=== PATIENT | female | born 1990 | race Hispanic/Latino ===

== ENCOUNTER 2019-04-25 11:23 | Inpatient (IN) | payer MEDICAID ==
[2019-04-25 13:10] LABS: Basophils % (Auto) 0.2 % (0.0-1.8); Eosinophils # (Auto) 0.1 K/mm3 (0.0-0.4); Hemoglobin 12.2 gm/dl (10.1-14.3); Lymphocytes # (Auto) 1.5 K/mm3 (1.2-5.4); Lymphocytes % (Auto) 15.2 % (13.4-35.0); Mean Corpuscular HGB Conc 34 % (30-34); Mean Corpuscular Volume 83 fl (79-97); Monocytes # (Auto) 0.8 K/mm3 (0.0-0.8); Monocytes % (Auto) 8.1 % (0.0-7.3); Platelet Count 198 K/mm3 (140-440); Red Blood Count 4.36 M/mm3 (3.65-5.03)
[2019-04-25] MEDS ORDERED: MINERAL OIL PO PRN (13:43)
[2019-04-25] MEDS ORDERED: XYLOCAINE 2% INFILTRATI ONE (13:43)
[2019-04-25] MEDS ORDERED: BRETHINE IVP PRN (13:43)
[2019-04-25] MEDS ORDERED: BRETHINE SUB-Q PRN (13:43)
[2019-04-25] MEDS ORDERED: PITOCin/NS 30 UNIT/500ML 30 UNITS/500 ML BAG IV SCH ×2 (14:00)
[2019-04-25] MEDS: LACTATED RINGERS 1,000 ML IV SCH (15:31)
--- NOTE | 2019-04-25 15:41 | History and Physical Report ---
History of Present Illness Date of examination: 04/25/19 Date of admission: 04/25/19 11:23 Chief complaint: My fluid is low History of present illness: Pt is a 28 year old who presents to L&D at 38.5 weeks for induction of labor secondary to oligohydramnios. Her course was complicated by breech presentation that resolved. She is GBs negative Past History Past Medical History: no pertinent history Past Surgical History: no surgical history Social history: - Obstetrical History Expected Date of Delivery: 05/04/19 Actual Gestation: 38 Week(s) 5 Day(s) : 4 Number of Living Children: 2 Medications and Allergies Allergies Allergy/AdvReac Type Severity Reaction Status Date / Time No Known Allergies Allergy Unverified 04/25/19 12:51 Active Meds: Active Medications Ephedrine Sulfate (Ephedrine Sulfate) 10 mg IV Q2M PRN PRN Reason: Hypotension Oxytocin/Sodium Chloride (Pitocin/Ns 20 Unit/1000ml Drip) 20 units in 1,000 mls @ 125 mls/hr IV DIRECT MELVIN Oxytocin/Sodium Chloride (Pitocin/Ns 30 Unit/500ml) 30 units in 500 mls @ 1 mls/hr IV TITR MELVIN; Protocol Oxytocin/Sodium Chloride (Pitocin/Ns 30 Unit/500ml) 30 units in 500 mls @ 4 mls/hr IV TITR MELVIN; Protocol Last Admin: 04/25/19 15:31 Dose: 4 mls/hr, 4 mls/hr Documented by: Lactated Ringer's (Lactated Ringers) 1,000 mls @ 125 mls/hr IV DIRECT MELVIN Last Admin: 04/25/19 15:31 Dose: 125 mls/hr Documented by: Mineral Oil (Mineral Oil) 30 ml PO QHS PRN PRN Reason: Constipation Terbutaline Sulfate (Brethine) 0.25 mg SUB-Q ONCE PRN PRN Reason: Hyperstimulation/Hypertonicity Terbutaline Sulfate (Brethine) 0.25 mg IVP ONCE PRN PRN Reason: Hyperstimulation/Hypertonicity Review of Systems All systems: negative Constitutional: fatigue Genitourinary: contractions Rectal Exam: deferred - Vital Signs Vital signs: Vital Signs Temp 97.4 F L 04/25/19 11:57 Temp Pulse Resp BP Pulse Ox 97.4 F L 86 110/75 04/25/19 11:57 04/25/19 12:40 04/25/19 12:40 - Physical Exam Breasts: Cardiovascular: Regular rate, Normal S1, Normal S2 Lungs: Positive: Clear to auscultation, Normal air movement Abdomen: Positive: normal appearance, soft, normal bowel sounds. Negative: distention, tenderness Vulva: both: normal Vagina: Positive: normal moisture. Negative: discharge Cervix: Negative: lesion, discharge Uterus: Positive: normal size, normal contour Adnexa: both: normal Anus/Rectum: Positive: normal perianal skin, heme negative. Negative: rectal mass, hemorrhoids Extremities: Deep Tendon Reflex Grade: Normal +2 - Obstetrical FHR: auscultation normal Cervical Dilatation: 2 Cervical Effacement Percentage: 70 station: -3 Uterine Contraction Pattern: Absent Uterine Contraction Intensity: Mild Results Result Diagrams: 04/25/19 12:05 Abnormal lab results 04/25/19 Range/Units 12:05 [place] % (Auto) 8.1 H (0.0-7.3) % Seg Neutrophils % 75.5 H (40.0-70.0) % All other labs normal. Assessment and Plan IUP at 38.5 weeks for induction of labor secondary to oligohydramnios. Admit for pitocin induction. AROM when able. Anticipate .
[2019-04-25] MEDS: STADOL IV PRN ×2 (17:41→20:07)
[2019-04-26] MEDS: LACTATED RINGERS 1,000 ML IV SCH ×3 (00:28→12:21)
[2019-04-26] MEDS ORDERED: NARCAN 2 MG/2 ML IV PRN (01:09)
--- NOTE | 2019-04-26 01:11 | Anesthesia Consultation ---
Anesthesia Consult and Med Hx Date of service: 04/26/19 - Airway Anesthetic Teeth Evaluation: Good ROM Head & Neck: Adequate Mental/Hyoid Distance: Adequate Mallampati Class: Class III Intubation Access Assessment: Probably Good - Pulmonary Exam CTA: Yes - Cardiac Exam Cardiac Exam: RRR - Pre-Operative Health Status ASA Pre-Surgery Classification: ASA2 Proposed Anesthetic Plan: Epidural - Pulmonary Hx Smoking: No Hx Asthma: No Hx Respiratory Symptoms: No SOB: No COPD: No Home Oxygen Therapy: No Hx Pneumonia: No Hx Sleep Apnea: No - Cardiovascular System Hx Hypertension: No Hx Coronary Artery Disease: No Hx Heart Attack/AMI: No Hx Angina: No Hx Percutaneous Transluminal Coronary Angioplasty (PTCA): No Hx Cardia Arrhythmia: No Hx Pacemaker: No Hx Internal Defibrillator: No Hx Valvular Heart Disease: No Hx Heart Murmur: No Hx Peripheral Vascular Disease: No - Central Nervous System Hx Neuromuscular Disorder: No Hx Seizures: No CVA: No Hx Back Pain: Yes Hx Psychiatric Problems: No - Gastrointestinal Hx Ulcer: No Hx Gastroesophageal Reflux Disease: Yes - Endocrine Hx Renal Disease: No Hx End Stage Renal Disease: No Hx Cirrhosis: No Hx Liver Disease: No Hx Insulin Dependent Diabetes: No Hx Non-Insulin Dependent Diabetes: No Hx Thyroid Disease: No Hx Hypothyroidism: No Hx Hyperthyroidism: No - Hematic Hx Anemia: No Hx Sickle Cell Disease: No - Other Systems Hx Alcohol Use: No Hx Substance Use: No Hx Cancer: No Hx Obesity: Yes (BMI 43)
[2019-04-26] MEDS: fentaNYL-BUPIV 2 MCG/ML-0.125% 200 MCG/100 ML BAG EPIDURAL SCH ×2 (02:22→10:22)
[2019-04-26] MEDS ORDERED: ZOFRAN IV PRN ×2 (12:53→18:12)
[2019-04-26] MEDS ORDERED: MARCAINE 0.25% INFILTRATI ONE (12:56)
[2019-04-26] MEDS: PITOCin/NS 20 UNIT/1000ML DRIP 20 UNITS/1,000 ML BAG IV SCH ×2 (16:03→17:12)
[2019-04-26] MEDS ORDERED: PHENERGAN PR PRN (18:12)
[2019-04-26] MEDS ORDERED: PHENERGAN PO PRN (18:12)
[2019-04-26] MEDS ORDERED: TYLENOL PO PRN (18:12)
[2019-04-26] MEDS ORDERED: DULCOLAX PR PRN (18:12)
[2019-04-26] MEDS ORDERED: SODIUM CHLORIDE FLUSH SYRINGE 10 ML IV NR (18:12)
[2019-04-26] MEDS ORDERED: LANSINOH TP PRN (18:12)
[2019-04-26] MEDS ORDERED: TUCKS PAD TP PRN (18:12)
[2019-04-26] MEDS ORDERED: MILK OF MAGNESIA PO PRN (18:12)
[2019-04-26] MEDS ORDERED: BENADRYL PO PRN (18:12)
[2019-04-26] MEDS: IBUPROFEN PO SCH (18:21)
[2019-04-26] MEDS: NORCO 5/325 PO PRN (19:01)
[2019-04-27] MEDS: IBUPROFEN PO SCH ×5 (00:16→23:47)
[2019-04-27] MEDS: COLACE PO SCH ×3 (00:16→23:47)
[2019-04-27] MEDS: NORCO 5/325 PO PRN ×3 (01:19→19:39)
[2019-04-27 04:38] LABS: Hematocrit 31.7 % (30.3-42.9); Hemoglobin 10.9 gm/dl (10.1-14.3)
[2019-04-27] MEDS: PRENATAL VITAMIN PO SCH (11:26)
[2019-04-27] MEDS ORDERED: XANAX PO ONE (17:56)
[2019-04-27] MEDS ORDERED: AMBIEN PO PRN ×2 (17:56→17:57)
--- NOTE | 2019-04-27 20:46 | Procedure Note ---
OB Delivery Note - Delivery Date of Delivery: 04/26/19 Surgeon: KAREN GONZALES Estimated blood loss: 200cc - Vaginal Delivery presentation: vertex Delivery position: OA Intrapartum events: meconium Delivery induction: oxytocin Delivery augmentation: pitocin Delivery monitor: external FHT, external uterine Route of delivery: Delivery placenta: spontaneous Delivery cord: 3 umbilical vessels Episiotomy: none Delivery laceration: none Anesthesia: none Delivery comments: Viable male delivered over intact perineum. Loose nuchal reduced with out difficulty. Infant had spontaneous cry and was placed on the maternal abdomen. Placenta delivered spontaneously and intact with 3vc. Pt tolerated procedure well. No lacerations. - Infant A at 1 minute: 8 (7 pound 9 ounces, 3491 grams) at 5 minutes: 9 Infant Gender: Male
--- NOTE | 2019-04-27 20:49 | Progress Note ---
Assessment and Plan PPD 1 s/p . Doing well. Plan for discharge on tomorrow. Will give Ambien for sleep. Subjective - Subjective Date of service: 04/27/19 Interval history: PPD 1 s/p . patient is upset because is in NICU with heart abnormality. Patient seems convinced that infant has Down Syndrome because of the shape of his eyes. No formal testing was done and patient had a Luis Miguel that was negative. Otherwise, patient is recovering well. Patient reports: appetite normal, voiding normally, pain well controlled, ambulating normally [place]: in NICU Objective - Vital Signs Latest vital signs: Vital Signs Temp Pulse Resp BP BP Pulse Ox 04/27/19 19:39 20 04/27/19 16:19 97.9 F 82 20 146/85 96 04/27/19 11:58 98.0 F 89 20 147/78 94 04/27/19 07:17 97.9 F 77 20 133/87 100 04/27/19 02:25 98.2 F 83 20 124/77 97 Intake and Output 04/27/19 04/27/19 04/27/19 06:59 14:59 22:59 Intake Total 600 240 Balance 600 240 Intake: Oral 600 240 Other: Total, Intake Amount 240 240 # Voids Void 1 1 - Exam Breasts: Present: deferred Cardiovascular: Present: Regular rate, Normal S1, Normal S2 Lungs: Present: Clear to auscultation, Normal air movement Abdomen: Present: normal appearance, soft Uterus: Present: normal, firm Extremities: Present: normal Incision: Present: normal, dry, intact
--- NOTE | 2019-04-27 21:36 | Post Anesthesia Evaluation ---
- Post Anesthesia Evaluation Patient Participated: Yes Airway Patent: Yes Stable Respiratory Function: Yes Nausea/Vomiting: No Temp > 96.8F: Yes Pain Manageable: Yes Adequeate Hydration: Yes Anesthesia Complications: No Block Receding Appropriately: Yes Patient on Ventilator: No
[2019-04-27] MEDS ORDERED: XANAX PO SCH (22:00)
[2019-04-28] MEDS: IBUPROFEN PO SCH ×2 (06:15→13:17)
--- NOTE | 2019-04-28 10:11 | Discharge Summary ---
Providers - Providers Date of Admission: 04/25/19 11:23 Date of discharge: 04/28/19 Attending physician: KAREN GONZALES Primary care physician: KAREN GONZALES Hospitalization Reason for admission: induction of labor Delivery: Episiotomy: none Laceration: none Other procedures: none complications: none Discharge diagnosis: IUP at term delivered baby: male Hospital course: unremarkable Condition at discharge: Good Disposition: DC-01 TO HOME OR SELFCARE Plan - Discharge Medications Prescriptions: Escitalopram Oxalate [Lexapro] 10 mg PO DAILY #30 tablet Ibuprofen [Motrin] 800 mg PO Q8HR PRN #40 tablet PRN Reason: Pain, Moderate (4-6) ALPRAZolam [Xanax TAB] 1 mg PO BID PRN #60 tab PRN Reason: Anxiety - Provider Discharge Summary Activity: routine, no sex for 6 weeks, no heavy lifting 4 weeks, no strenuous exercise Diet: routine Instructions: routine Additional instructions: [] Smoking cessation referral if applicable(refer to patient education folder for contact #) [] Refer to [facility] Booklet Call your doctor immediately for: * Fever > 100.5 * Heavy vaginal bleeding ( >1 pad per hour) * Severe persistent headache * Shortness of breath * Reddened, hot, painful area to leg or breast * Drainage or odor from incision. * Keep incision clean and dry at all times and follow doctor's instructions regarding bathing/showering - Follow up plan Follow up: KAREN GONZALES MD [Primary Care Provider] - 6 Weeks
[2019-04-28] MEDS: PRENATAL VITAMIN PO SCH (10:32)
[2019-04-28] MEDS: NORCO 5/325 PO PRN ×2 (10:32→16:31)
[2019-04-28] MEDS: COLACE PO SCH (10:32)
[2019-04-28 13:55] VITALS: BP 132/81
== END 2019-04-28 17:35 | disposition home or self-care (01) | DRG 775 ==
LOC: LD 11:23 → OB 04-26 18:03
PROVIDERS: ADMIT Obstetrics & Gynecology; ATTEND Obstetrics & Gynecology
PROC: 10E0XZZ Delivery of Products of Conception, External Approach (ICD-10-PCS; principal; 2019-04-26)
PROC: 3E033VJ Introduction of Other Hormone into Peripheral Vein, Percutaneous Approach (ICD-10-PCS; 2019-04-26)
DX: O77.0 Labor and delivery complicated by meconium in amniotic fluid (principal); O41.03X0 Oligohydramnios, third trimester, not applicable or unspecified; O69.1XX0 Labor and delivery complicated by cord around neck, with compression, not applicable or unspecified; O99.62 Diseases of the digestive system complicating childbirth; K21.9 Gastro-esophageal reflux disease without esophagitis; O99.214 Obesity complicating childbirth; Z37.0 Single live birth; Z3A.38 38 weeks gestation of pregnancy
CPT/HCPCS: 36415; 85014; 85018; 85025; 86592; 86850; 86900; 86901; G0378; J0595; J2405; J2590; J7120

== ENCOUNTER 2019-06-13 05:54 | Day surgery (SDC) | payer MEDICAID ==
[~2019-06-13 05:54] MED LIST: LACTATED RINGERS 1,000 ML IV SCH
[2019-06-13] MEDS ORDERED: CELECOXIB 200 MG CAP PO NR (06:00)
[2019-06-13] MEDS ORDERED: MIDAZOLAM 2 MG/2 ML INJ IV NR (06:00)
[2019-06-13] MEDS ORDERED: GABAPENTIN 300 MG CAP PO NR (06:00)
--- NOTE | 2019-06-13 06:49 | Short Stay Summary ---
Short Stay Documentation Date of service: 06/13/19 Narrative H&P: patient is a 28 year old who presents at approximately 7 weeks post for elective sterilization. - History H&P: obtained from office Past Medical History: other (depression and anxiety) Past Surgical History: cholecystectomy Social history: - Allergies and Medications Current Medications: Allergies No Known Allergies Allergy (Unverified 06/08/19 15:45) Home Medications Medication Instructions Recorded Confirmed Last Taken Type Vitamin 1 tab PO DAILY 04/25/19 06/08/19 1 Day Ago History ~04/24/19 Active Medications Celecoxib (Celebrex) 200 mg PO PREOP NR Stop: 06/13/19 18:00 Gabapentin (Gabapentin) 300 mg PO PREOP NR Stop: 06/13/19 18:00 Lactated Ringer's (Lactated Ringers) 1,000 mls @ 100 mls/hr IV DIRECT MELVIN Midazolam HCl (Versed) 2 mg IV PREOP NR Stop: 06/13/19 18:00 - Physical exam General appearance: no acute distress Integumentary: no rash, no growths Lungs: Clear to auscultation, Normal air movement Breasts: deferred Heart: Regular rate, Normal S1, Normal S2 Gastrointestinal: normal, normoactive bowel sounds Female Genitourinary: normal Rectal Exam: deferred Extremities: No edema - Brief post op/procedure progress note Date of procedure: 06/13/19 Pre-op diagnosis: Undesired fertility Post-op diagnosis: same Procedure: Laparoscopic tubal fulguration Anesthesia: GETA Findings: NOrmal appearing uterus, tubes and ovaries Surgeon: KAREN GONZALES Estimated blood loss: 50-100ml Pathology: none Condition: stable - Hospital course Hospital course: Unremarkable - Disposition Condition at discharge: Good Disposition: DC-01 TO HOME OR SELFCARE Short Stay Discharge Plan Activity: advance as tolerated Weight Bearing Status: Weight Bear as Tolerated Diet: regular Follow up with: KAREN GONZALES MD [Staff Physician] - 14 Days Prescriptions: Ibuprofen [Motrin 800 MG tab] 800 mg PO Q8HR PRN #30 tablet PRN Reason: Pain, Moderate (4-6) HYDROcodone/APAP 5-325 [[place] 5/325] 1 each PO Q6HR PRN #20 tablet PRN Reason: Pain
[2019-06-13] MEDS ORDERED: ceFAZolin/Water 2 GM/20 ML 2 GM/20 ML SYRINGE IV NR (07:00)
--- NOTE | 2019-06-13 07:19 | Anesthesia Consultation ---
Anesthesia Consult and Med Hx Date of service: 06/13/19 - Airway Anesthetic Teeth Evaluation: Good ROM Head & Neck: Adequate Mental/Hyoid Distance: Adequate Mallampati Class: Class III Intubation Access Assessment: Possibly Difficult - Pre-Operative Health Status ASA Pre-Surgery Classification: ASA2 Proposed Anesthetic Plan: General - Pulmonary Hx Smoking: Yes (Former smoker) Hx Asthma: No Hx Respiratory Symptoms: No SOB: No COPD: No Hx Pneumonia: No Hx Sleep Apnea: No - Cardiovascular System Hx Hypertension: No Hx Coronary Artery Disease: No Hx Heart Attack/AMI: No Hx Angina: No Hx Percutaneous Transluminal Coronary Angioplasty (PTCA): No Hx Cardia Arrhythmia: No Hx Pacemaker: No Hx Internal Defibrillator: No Hx Valvular Heart Disease: No Hx Heart Murmur: No Hx Peripheral Vascular Disease: No - Central Nervous System Hx Neuromuscular Disorder: No Hx Seizures: No CVA: No Hx Back Pain: Yes Hx Psychiatric Problems: Yes (anxiety (has not taken Xanax for 2 weeks)) - Gastrointestinal Hx Ulcer: No Hx Gastroesophageal Reflux Disease: Yes - Endocrine Hx Renal Disease: No Hx End Stage Renal Disease: No Hx Cirrhosis: No Hx Liver Disease: No Hx Insulin Dependent Diabetes: No Hx Non-Insulin Dependent Diabetes: No Hx Thyroid Disease: No Hx Hypothyroidism: No Hx Hyperthyroidism: No - Hematic Hx Anemia: No Hx Sickle Cell Disease: No - Other Systems Hx Alcohol Use: Yes (Occas) Hx Substance Use: No Hx Cancer: No Hx Obesity: Yes (BMI 39.9)
--- NOTE | 2019-06-13 07:19 | Anesthesia Day of Surgery ---
Anesthesia Day of Surgery - Day of Surgery Patient Examined: Yes Patient H&P Reviewed: Yes Patient is NPO: Yes
[2019-06-13] MEDS ORDERED: BUPIVACAINE/PF (0.25%) 2.5 MG/ML 30 ML VIAL INFILTRATI ONE ×2 (07:25→08:10)
[2019-06-13] MEDS ORDERED: LIDOCAINE MPF (2%) 20 MG/1 ML VIAL 5 ML ONE (07:30)
[2019-06-13] MEDS ORDERED: fentaNYL 100 MCG/2 ML INJ ONE (07:30)
[2019-06-13] MEDS ORDERED: ROCURONIUM 50 MG/5 ML INJ IV ONE (07:30)
[2019-06-13] MEDS ORDERED: PROPOFOL 200 MG/20 ML VIAL IV ONE (07:31)
[2019-06-13] MEDS ORDERED: dexAMETHasone 20 MG/5 ML VIAL ONE (07:38)
[2019-06-13] MEDS ORDERED: ONDANSETRON 4 MG/2 ML INJ ONE (07:38)
[2019-06-13 07:39] LABS: Hematocrit 36.2 % (30.3-42.9); Hemoglobin 12.2 gm/dl (10.1-14.3)
[2019-06-13] MEDS ORDERED: FAMOTIDINE 20 MG/2 ML INJ IV NR (08:00)
[2019-06-13] MEDS ORDERED: GLYCOPYRROLATE 0.4 MG/2 ML INJ ONE (08:26)
[2019-06-13] MEDS ORDERED: KETOROLAC 30 MG/1 ML INJ ONE (08:26)
[2019-06-13] MEDS ORDERED: NEOSTIGMINE 10MG/10 ML INJ MDV ONE (08:26)
[2019-06-13] MEDS ORDERED: LACTATED RINGERS 1,000 ML ONE (08:32)
--- NOTE | 2019-06-13 08:58 | Operative Report ---
Operative Report Operative Report: Preoperative diagnosis: Undesired fertility Postoperative diagnosis: Same Procedure: Bilateral laparoscopic tubal fulguration Surgeon: Aniya Prince Anesthesia: General EBL: Minimal IV fluids: 1000 mL Urine output: 200 mL Findings: Normal uterus tubes and ovaries Specimens: None Complications: None The patient was properly identified as herself. She was then taken to the OR with IV running and in place. She was given general anesthesia without difficulty. She was placed in a dorsal lithotomy position. She was then prepped and draped in normal sterile fashion. Attention was turned to the patient's vagina. Her bladder was drained of clear urine with a red rubber catheter. The speculum was then placed the patient's vagina. The cervix was visualized and grasped with tenaculum. The acorn cannula was then inserted. The surgeon's gloves were changed and attention turned to the patient's abdomen. A small incision was made in the patient's umbilicus incision a 5 mm trocar was placed. The laparoscope confirmed intra-abdominal placement. The abdomen was insufflated with CO2 gas to approximately 25 mmHg. Both fallopian tubes were identified. With direct visualization a second trocar was placed through an incision in the left lower quadrant. Both tubes were found and followed out to the fimbriated ends. Each tube was cauterized in the midportion for a total length of 3 cm of blanching. There was excellent hemostasis at the end of this portion of the procedure. At this point the abdomen was deflated. All instruments were then removed from the abdomen. The incisions were then closed with 4-0 Monocryl. The incisions were also injected with quarter percent Marcaine. The patient tolerated the procedure well she was then awakened and taken recovery in stable condition. Sponge needle and instrument counts were correct 2.
[2019-06-13] MEDS ORDERED: HYDROmorphone 1 MG/1 ML INJ IV PRN (09:00)
[2019-06-13] MEDS ORDERED: MEPERIDINE 25 MG/1 ML INJ IV PRN (09:00)
[2019-06-13] MEDS ORDERED: ONDANSETRON 4 MG/2 ML INJ IV PRN (09:00)
[2019-06-13] MEDS ORDERED: HYDROcodone/ACETAMINOPHEN 5-325 MG TAB PO PRN (09:05)
[2019-06-13 09:36] VITALS: BP 122/75
--- NOTE | 2019-06-13 18:22 | Post Anesthesia Evaluation ---
- Post Anesthesia Evaluation Patient Participated: Yes Airway Patent: Yes Stable Respiratory Function: Yes Nausea/Vomiting: No Temp > 96.8F: Yes Pain Manageable: Yes Adequeate Hydration: Yes Anesthesia Complications: No Block Receding Appropriately: Not Applicable Patient on Ventilator: No
== END 2019-06-13 05:55 | disposition home or self-care (01) ==
LOC: OR 05:54
PROVIDERS: ATTEND Obstetrics & Gynecology
DX: Z30.2 Encounter for sterilization (principal); E66.9 Obesity, unspecified; K21.9 Gastro-esophageal reflux disease without esophagitis; Z87.891 Personal history of nicotine dependence; Z79.899 Other long term (current) drug therapy; Z68.39 Body mass index [BMI] 39.0-39.9, adult; Z72.89 Other problems related to lifestyle; Z98.890 Other specified postprocedural states; Z82.49 Family history of ischemic heart disease and other diseases of the circulatory system
CPT/HCPCS: 36415; 58670; 81025; 85014; 85018; J0690; J1100; J1885; J2175; J2250; J2405; J2704; J2710; J3010; J7120